=== PATIENT | male | born 1975 | race Caucasian/White ===

== ENCOUNTER 2025-02-06 16:38 | Emergency (ER) | payer OTHER, MEDICARE, SELFPAY ==
[2025-02-06 16:41] VITALS: BP 166/118
[2025-02-06 17:14] LABS: Hematocrit 50.3 % (39.0-52.0); Hemoglobin 17.3 g/dL (13.0-18.0); Mean Corp Hgb Conc. 34.4 g/dL (33.0-37.0); Mean Corpuscular Volume 90.0 fL (80.0-94.0); Nucleated Red Blood Cells % 0 % (-); Platelet Count 225 10^3/uL (130-400); Red Cell Dist. Width 11.9 % (11.5-14.5)
[2025-02-06 17:33] LABS: ALT (SGPT) 22 U/L (0-50); AST (SGOT) 26 U/L (17-59); Albumin 4.3 g/dl (3.5-5.0); Alkaline Phosphatase 55 U/L (38-126); Blood Urea Nitrogen 34 mg/dl (9-20); Calcium 10.7 mg/dl (8.4-10.2); Carbon Dioxide 23 mmol/L (22-30); Chloride 110 mmol/L (98-107); Glucose 123 mg/dl (70-99); Lipase 89 U/L (23-300); Potassium 4.2 mmol/L (3.5-5.1); Sodium 141 mmol/L (135-145); Total Protein 7.3 g/dl (6.3-8.2); eGFR 33.54
--- NOTE | 2025-02-06 20:34 | ED.GENMED ---
History of Present Illness
General
Chief Complaint: Abnormal Lab Value
Source: patient
Exam Limitations: none
Time Seen by Provider: 02/06/25 20:03
History of Present Illness
History of Present Illness:
49yoM with a history of polycystic kidney disease with CKD, hypertension, and TBI presenting for follow-up evaluation. Patient was sent for a routine outpatient CT abdomen 3 days ago by his shrimp trawler captain to monitor his renal cysts. He was
incidentally found to have 'partial mesentero-axial gastric volvulus' and he was sent to [facility] where he was admitted. He was seen by general surgery and conservative management was pursued and he was made NPO but did not receive NG tube. He was
supposed to have an upper GI series yesterday but the study was delayed. Patient became frustrated and decided to leave AMA since he was feeling better. His shrimp trawler captain instructed him to go back to the ED for evaluation today. He denies any
nausea or vomiting and did have a small BM earlier today. He denies any abdominal pain but has some soreness and reports that his 'stomach feels unsettled' for several weeks. CT also showed uncomplicated diverticulitis and he is currently taking
cefpodoxime and Flagyl.
Past History
Past History
ED Past Medical History: GERD, Psychiatric and Other (polycystic kidneys, subdural and subarachnoid hematoma)
ED Past Surgical History: Other (TBI/hernia)
Social History
Tobacco: Smoker
Alcohol: Occasional
Drug: Cocaine and Other (amphetamine)
Personal:
Living: with family
Family History
Family History: Other
Phy Exam
General Physical Exam
General Presentation: well appearing and no apparent distress
General Skin: warm and dry
General Habitus: normal
General Mental: alert
ENT Exam
ENT Exam: normocephalic
Pulmonary Exam
Pulmonary Exam: no respiratory distress
Gastrointestinal Exam
Gastrointestinal Exam: normal bowel sounds, non tender, soft and non distended
Neurological Exam
Neurological Exam: alert
Kristi Coma Scale
Eye Opening: Spontaneous
Verbal Response: Oriented
Motor Response: Obeys Commands
GCS Total Score: 15
Skin Exam
Skin Exam: normal color and warm/dry
Psychiatric Exam
Psychiatric Exam: normal mood/affect
Course
Orders/Labs/Results
Orders:
Orders
02/06/25 17:05
Complete Blood Count/With Diff Urgent
Comprehensive Metabolic Panel Urgent
Lipase Urgent
Abnormal Lab Results
02/06/25
17:05
Absolute Monos (auto) 0.7 H 10^3/uL
(0.1-0.6)
Lymphocytes % 18.0 L %
(20.5-51.1)
Monocytes % 10.3 H %
(1.7-9.3)
Chloride 110 H mmol/L
(98-107)
BUN 34 H mg/dl
(9-20)
Creatinine 2.3 H mg/dL
(0.7-1.3)
Glucose 123 H mg/dl
(70-99)
Calcium 10.7 H mg/dl
(8.4-10.2)
02/06/25 17:05
02/06/25 17:05
Vital Signs
Initial and Last Documented VS:
Initial Vital Signs
Temp Pulse Resp BP Pulse Ox
98.1 F 125 20 166/118 99
02/06/25 16:41 02/06/25 16:41 02/06/25 16:41 02/06/25 16:41 02/06/25 16:41
Last Documented Vital Signs
Temp Pulse Resp BP Pulse Ox
98.1 F 103 22 156/106 99
02/06/25 16:41 02/06/25 20:43 02/06/25 20:43 02/06/25 20:43 02/06/25 20:43
MDM/Problems Addressed
Differential Diagnosis Includes:
49yoM here for re-evaluation after leaving AMA yesterday from [facility]. Admitted for a partial gastric volvulus that was seen incidentally on outpatient CT. He did not require surgery or NG tube. Left AMA prior to undergoing upper GI series. He is
essentially asymptomatic and states he is only here because his shrimp trawler captain made him come. No vomiting and had a bowel movement earlier today. Abdominal exam is benign without signs of peritonitis. HR 125 in triage which improved without
intervention.
I discussed with radiology and we are unable to obtain upper GI series in the ED and this cannot be performed until Sunday. Per radiology, repeat CT would not be beneficial as real time fluoroscopic imaging is necessary. Discussed this with patient.
Offered to transfer him back to [facility] which he declines. No obstructive symptoms and abdominal exam is benign. Very low suspicion for acute volvulus. At this point, will discharge patient with strict return precautions. He was advised to f/u with his
PCP first thing Sunday morning. D/w Dr. Vieyra.
*Pulse Oximetry
SaO2: 99
Oxygen Mode of Delivery: Room air
Patient hypoxic: no (99%)
*Critical Care Note
Total Time (30-74mins, 75-104mins- exclusive of procedures): Not Applicable
ED Attending Note
-
Portions of this chart may have been created with voice recognition software.� Occasional wrong word or��sound alike� substitutions may have occurred due to the inherent limitations of voice recognition software.
Discharge Plan
Departure
Patient Disposition: Home (Routine Discharge)
Date of Disposition: 02/06/25
Time of Disposition: 20:48
Patient with high blood pressure during this ER visit?: Yes
Discharge Problem:
Abdominal discomfort
Instructions: Abdominal pain in adults - Discharge instructions
Prescriptions:
No Action
geriatric multivitamin-min 1 CAP capsule
1 cap PO DAILY
(DME) blood glucose control, high [Prestige Glucose Hi Control] 1 EACH solution
1 ea MC
albuterol sulfate 1 PUFF HFA aerosol inhaler
2 puff inhalation R Q4HPRN PRN (Reason: wheezing) Qty: 1 1RF
levetiracetam 500 MG tablet
500 mg PO BID Qty: 60 0RF
ondansetron HCl 4 mg tablet
4 mg PO Q8H PRN (Reason: nausea and vomiting) Qty: 14 0RF
Activity Restrictions/Additional Instructions:
Eat a clear liquid diet for now. Please follow-up with your family doctor on Sunday.
Return to the ER immediately with any worsening symptoms including pain or vomiting.
Interventions
Interventions:
*Risk Screen - Suicide Last Done: 02/06/25 16:41
*General Assessment Last Done: 02/06/25 16:41
*Neglect/Abuse Screening Last Done: 02/06/25 22:07
*ED- Fall Risk Assessment Last Done: 02/06/25 22:07
*ED COVID-19 Vaccine History Last Done: 02/06/25 22:07
*Nursing Disposition Last Done: 02/06/25 22:07
Discharge Date and Time
Discharge Date/Time: 02/06/25 22:08
Print Language: CROATIAN
[2025-02-06 20:43] VITALS: BP 156/106
== END 2025-02-06 22:08 | disposition home or self-care (01) ==
LOC: EMR 16:38
PROVIDERS: Student in an Organized Health Care Education/Training Program; EMERGENCY PHYSICIAN Emergency Medicine
DX: R10.13 Epigastric pain (principal); R03.0 Elevated blood-pressure reading, without diagnosis of hypertension; F17.200 Nicotine dependence, unspecified, uncomplicated; Q61.3 Polycystic kidney, unspecified; N18.9 Chronic kidney disease, unspecified; Z87.820 Personal history of traumatic brain injury
CPT/HCPCS: 99283; 80053; 83690; 85025